=== PATIENT | female | born 1995 | race Caucasian/White ===

== ENCOUNTER 2019-09-10 12:14 | Emergency (ER) | payer OTHER ==
[2019-09-10 12:34] VITALS: BP 118/81; PULSE 101; RESP 20; TEMP 98.9
[2019-09-10] MEDS ORDERED: RABIES IMMUNE GLOB 300 UNIT/ML 1 ML VIAL IM ONE (13:15)
[2019-09-10] MEDS ORDERED: RABIES VACCINE (PCEC) 2.5 UNIT KIT IM ONE (13:15)
[2019-09-10] MEDS ORDERED: RABIES IMMUNE GLOB 300 UNIT/ML 5 ML VIAL IM ONE (13:30)
--- NOTE | 2019-09-10 13:47 | ED ---
General Adult HPI - General Chief complaint: Recheck/Abnormal Lab/Rx Stated complaint: bat exposure Time Seen by Provider: 09/10/19 12:57 Source: patient, RN notes reviewed Mode of arrival: ambulatory Limitations: no limitations - History of Present Illness Initial comments: 24-year-old female presented for back exposure. Patient states that there was a bat in the house 2 days ago. Patient states she didn't of grabbing the back and playing outside. Patient was recommended to present emergency department for rabies vaccine. - Related Data Allergies Allergy/AdvReac Type Severity Reaction Status Date / Time No Known Allergies Allergy Verified 09/10/19 12:34 Review of Systems ROS Statement: Those systems with pertinent positive or pertinent negative responses have been documented in the HPI. ROS Other: All systems not noted in ROS Statement are negative. Past Medical History Past Medical History: No Reported History History of Any Multi-Drug Resistant Organisms: None Reported Past Surgical History: No Surgical Hx Reported Past Psychological History: Depression Smoking Status: Current every day smoker Past Alcohol Use History: Occasional Past Drug Use History: Marijuana General Exam Limitations: no limitations General appearance: alert, in no apparent distress Head exam: Present: atraumatic, normocephalic, normal inspection Eye exam: Present: normal appearance, PERRL, EOMI. Absent: scleral icterus, conjunctival injection, periorbital swelling Neck exam: Present: normal inspection. Absent: tenderness, meningismus, lymphadenopathy Respiratory exam: Present: normal lung sounds bilaterally. Absent: respiratory distress, wheezes, rales, rhonchi, stridor Cardiovascular Exam: Present: regular rate, normal rhythm, normal heart sounds. Absent: systolic murmur, diastolic murmur, rubs, gallop, clicks Course Vital Signs 09/10/19 12:30 Temperature 98.9 F Pulse Rate 101 H Respiratory 20 Rate Blood Pressure 118/81 O2 Sat by Pulse 98 Oximetry Medical Decision Making - Medical Decision Making 24-year-old present for about exposure. Patient provided rabies vaccine. Patient was given immunoglobulin and will be discharged with follow-up. Disposition Clinical Impression: Exposure to bat without known bite Disposition: HOME SELF-CARE Condition: Stable Instructions (If sedation given, give patient instructions): Rabies (ED) Additional Instructions: Please return to the Emergency Department if symptoms worsen or any other concerns. Is patient prescribed a controlled substance at d/c from ED?: No Referrals: None,Stated [Primary Care Provider] - 1-2 days Time of Disposition: 13:47
== END 2019-09-10 14:34 | disposition home or self-care (01) ==
LOC: EC 12:14
DX: Z20.3 Contact with and (suspected) exposure to rabies (principal); Z20.828 Contact with and (suspected) exposure to other viral communicable diseases; Z23 Encounter for immunization; F17.200 Nicotine dependence, unspecified, uncomplicated
CPT/HCPCS: 90375; 90471; 90675; 96372; 99283

== ENCOUNTER → 2019-09-13 | Outpatient (CLI) | payer OTHER ==
[~2019-09-13] MED LIST: RABIES VACCINE (PCEC) 2.5 UNIT KIT IM ONE
== END | disposition home or self-care (01) ==
LOC: PEDOP 11:12 → EDSTATUS 11:55
PROVIDERS: ATTEND Physician Assistant
DX: T14.8XXA Other injury of unspecified body region, initial encounter (principal); Z20.3 Contact with and (suspected) exposure to rabies; Z23 Encounter for immunization
CPT/HCPCS: 90471; 90675

== ENCOUNTER → 2024-02-27 | Outpatient (CLI) | payer OTHER ==
--- NOTE | 2024-02-28 08:12 | US ---
EXAMINATION TYPE: US pelvis complete transvag DATE OF EXAM: 02/27/2024 COMPARISON: NONE CLINICAL INDICATION: Female, 28 years old with history of N92.5 Other specified irregular menstruatio n; Irregular periods x couple months TECHNIQUE: Transvaginal (TV) and Transabdominal (TA) . Transabdominal and transvaginal grayscale sonographic images of the pelvis were acquired. FINDINGS: Date of LMP: 12/18/2023 EXAM MEASUREMENTS: Uterus: 7.5 x 3.4 x 4.5 cm Endometrial Stripe: 0.7 cm Right Ovary: 3.1 x 2.6 x 2.3 cm Left Ovary: 4.0 x 1.9 x 2.3 cm 1. Uterus: anteverted, mildly heterogeneous, 1.4 cm nabothian cyst 2. Endometrium: appears wnl 3. Right Ovary: multiple follicles 4. Left Ovary: multiple follicles 5. Bilateral Adnexa: wnl 6. Posterior cul-de-sac: wnl IMPRESSION: 1. No evidence for acute process. 2. Endometrium within normal limits for thickness. [facility], , 02/28/2024 8:10 AM
== END | disposition home or self-care (01) ==
LOC: RADUSWWP 15:45
PROVIDERS: ATTEND Emergency Medicine
DX: N92.5 Other specified irregular menstruation (principal)
CPT/HCPCS: 76830; 76856